=== PATIENT | female | born 1985 | race Caucasian/White ===

== ENCOUNTER 2017-10-08 14:46 | Emergency (ER) | payer OTHER ==
[~2017-10-08] VITALS: Ht 154.9 cm; Wt 74.3 kg
[~2017-10-08 14:46] MED LIST: AMBIEN10 MG PO; INDERAL LA60 MG PO; REMICADE10 MG/ML IV; VITAMIN D35000 UNIT PO
[2017-10-08 16:00] LABS: HEMATOCRIT 42.1 % (36.0-46.0); MCH 31.6 PG (29.0-34.0); MCHC 35.6 G/DL (30.0-36.0); MCV 88.6 FL (83-99); PLATELET COUNT 197 K/uL (156-360); RBC DIS.WIDTH-CV 11.6 % (11.8-14.6); RBC DIS.WIDTH-SD 37.4 % (39-53); RED BLOOD COUNT 4.75 M/uL (3.80-5.20); WHITE BLOOD COUNT 8.3 K/uL (4.1-10.2)
[2017-10-08 16:13] LABS: ALBUMIN 4.5 g/dL (3.2-4.8)
[2017-10-08 16:14] LABS: CHLORIDE 105 mEq/L (99-109); POTASSIUM 3.7 mEq/L (3.7-5.4); SODIUM 140 mEq/L (136-147)
[2017-10-08 16:16] LABS: GLUCOSE 116 mg/dL (70-99); TOTAL PROTEIN 7.5 g/dL (6.4-8.3)
[2017-10-08 16:18] LABS: TOTAL BILIRUBIN 1.8 mg/dL (0.0-1.0)
[2017-10-08 16:19] LABS: ALKALINE PHOSPHATASE 53 IU/L (3-129)
[2017-10-08 16:20] LABS: CREATININE 0.8 mg/dL (0.6-1.3); GFR ESTIMATE (CALCULATED) > 59 mL/min/
[2017-10-08 16:21] LABS: AST (GOT) 14 IU/L (2-34); UREA NITROGEN (BUN) 10 mg/dL (9-23)
[2017-10-08 16:23] LABS: ALT (GPT) 10 IU/L (3-49)
[2017-10-08 16:28] LABS: QUANTITATIVE HCG < 4.0 MIU/ML
[2017-10-08 17:41] LABS: APPEARANCE SL.HAZY ((CLEAR)); BILIRUBIN NEGATIVE; BLOOD SMALL; COLOR YELLOW ((YELLOW)); GLUCOSE (STRIP) NEGATIVE; KETONES 20; LEUKOCYTES TRACE; NITRITE NEGATIVE; PROTEIN (STRIP) NEGATIVE; SPECIFIC GRAVITY 1.013 (1.000-1.030); UROBILINOGEN 0.2 MG/DL (0.2-1.0)
[2017-10-08 17:49] LABS: BACTERIA RARE /HPF; EPITHELIAL CELLS RARE /HPF; MUCUS 1+ /LPF; RED BLOOD CELLS 15-20 /HPF (0-5); WHITE BLOOD CELLS 0-5 /HPF (0-5)
[2017-10-08] MEDS ORDERED: BACTRIM,SEPT1 TABLET PO (17:51)
[2017-10-08] MEDS ORDERED: ZOFRAN ODT4 MG PO (17:52)
[2017-10-08 18:20] VITALS: BP 103/61
== END 2017-10-08 18:37 | disposition home or self-care (01) ==
LOC: EME 14:46
PROVIDERS: Nurse Practitioner Family
DX: N20.0 Calculus of kidney (principal); N39.0 Urinary tract infection, site not specified; M19.90 Unspecified osteoarthritis, unspecified site; Z87.442 Personal history of urinary calculi; Z95.828 Presence of other vascular implants and grafts
CPT/HCPCS: 74176; 80053; 81003; 84702; 85027; 99281; 99284; J1885; J2405; J7030